=== PATIENT | female | born 1960 | race Caucasian/White ===

== ENCOUNTER → 2018-05-05 | Outpatient (CLI) | payer BC | LOC: RAD 10:24 | DX: Z12.31 Encounter for screening mammogram for malignant neoplasm of breast (principal) ==

== ENCOUNTER 2018-09-11 21:18 | Emergency (ER) | payer BC ==
[~2018-09-11] VITALS: Ht 147.3 cm; Wt 77.1 kg
[2018-09-11 21:19] VITALS: BP 159/83
[2018-09-11] MEDS ORDERED: MOBIC15 MG PO (22:26)
== END 2018-09-11 22:56 | disposition home or self-care (01) ==
LOC: ER 21:18
DX: M25.521 Pain in right elbow (principal); Z90.49 Acquired absence of other specified parts of digestive tract

== ENCOUNTER → 2019-05-12 | Outpatient (CLI) | payer BC ==
[~2019-05-12] MED LIST: MOBIC15 MG PO
== END ==
LOC: RAD 11:16
DX: Z12.31 Encounter for screening mammogram for malignant neoplasm of breast (principal)

== ENCOUNTER → 2019-06-14 | Outpatient (CLI) | payer BC | LOC: ULTRA 14:51 | DX: N63.23 Unspecified lump in the left breast, lower outer quadrant (principal) ==

== ENCOUNTER → 2020-05-11 | Outpatient (CLI) | payer BC | LOC: RAD 08:23 | PROVIDERS: ATTEND Obstetrics & Gynecology | DX: Z12.31 Encounter for screening mammogram for malignant neoplasm of breast (principal) ==

== ENCOUNTER → 2021-05-16 | Outpatient (CLI) | payer BC | LOC: BC 14:02 | PROVIDERS: ATTEND Obstetrics & Gynecology | DX: Z12.31 Encounter for screening mammogram for malignant neoplasm of breast (principal); N64.89 Other specified disorders of breast ==